=== PATIENT | female | born 1965 | race Caucasian/White ===

== ENCOUNTER → 2018-05-09 | Day surgery (SDC) | payer OTHER ==
--- NOTE | 2018-05-12 16:42 | PATH ---
Surgical Pathology Report Patient Name: JEAN CHRISTY [facility]. Rec. #: [id number] /Age/Gender: 1965 (Age: 52) / F Account: [id number] Location: [place] Pathology Taken: 05/09/2018 Received: 05/09/2018 Reported: 05/12/2018 Physicians: Vicente Nix M.D. Specimen(s) Received RIGHT BREAST CORE BIOPSY 9:00 [id number] Clinical History Ultrasound findings: Suspicious Final Diagnosis RIGHT BREAST, 9:00 6 CM FN, CORE BIOPSY: BENIGN BREAST TISSUE SHOWING FIBROCYSTIC CHANGES WITH MICROCYSTS, APOCRINE METAPLASIA, PERIDUCTAL MILD CHRONIC INFLAMMATION, STROMAL FIBROSIS, AND MICROCALCIFICATIONS. Electronically Signed Bib Tang M.D. Gross Description Received in formalin labeled "right breast biopsy 9:00, 6 cmfn," is a 1.8 x 1.3 x 0.2 cm aggregate of quezada-yellow, irregular to cylindrical portions of fibroadipose tissue. The formalin is filtered and the specimen is entirely submitted in one cassette. Time to formalin fixation: 2 minutes Total formalin fixation time: Approximately 6 hours. /05/09/201805/09/2018
== END | disposition home or self-care (01) ==
LOC: FRADUS-SUR 10:58
PROVIDERS: ATTEND Surgery Surgical Oncology
PROC: 0HBT3ZX Excision of Right Breast, Percutaneous Approach, Diagnostic (ICD-10-PCS; principal; 2018-05-09)
DX: N60.11 Diffuse cystic mastopathy of right breast (principal); N60.31 Fibrosclerosis of right breast; N64.89 Other specified disorders of breast; N63.10 Unspecified lump in the right breast, unspecified quadrant
CPT/HCPCS: 19083; 77065-TC; 87899; 88305-TC; A4648

== ENCOUNTER 2018-06-19 11:00 | Inpatient (IN) | payer OTHER ==
--- NOTE | 2018-06-12 09:11 | HP ---
Admitting History and Physical - Primary Care Physician PCP: Jose E Boland - Admission Chief Complaint: right breast cancer History of Present Illness: Patient is a 52 yo female noted to have suspicious masses at the right 11:00 position x 2 masses on mammo and US. Patient underwent a biopsy of these two lesions which revealed invasive carcinoma and atypia (2 clips). Patient also underwent a core bx of an additional right 9:00 lesion which was c/w benign findings. The MRI was c/w known cancer and without evidence of suspicious findings of the left. The patient has opted to have a bilateral mastectomy with right snbx, lympho, possible andx and reconstruction. History Source: Patient Limitations to Obtaining History: No Limitations - Past Medical History Gastrointestinal: Yes: Other (SBO 1973) - Past Surgical History Past Surgical History: Yes: (1989) Additional Past Surgical History: breast augmentation with silicone (2013) Home Medications - Allergies Allergies/Adverse Reactions: Allergies Allergy/AdvReac Type Severity Reaction Status Date / Time No Known Allergies Allergy Verified 06/12/18 09:15 - Home Medications Home Medications (free text): none Family Disease History - Family Disease History Family Disease History: CA: Grandparent (mat GF-gastric cancer, mat GM (uterine cancer) ) Review of Systems - Review of Systems Constitutional: reports: No Symptoms Cardiovascular: reports: No Symptoms Respiratory: reports: No Symptoms Physical Examination Constitutional: Yes: Well Nourished, Calm (Patient has vertical mastopexy well healed incisions from implant placement. Right breast with palpable density noted in the upper outer aspect at site of biopsies. No other suspicious masses were noted bilaterally. No suspicious adenopathy noted bilaterally.) Problem List - Problems (1) Breast cancer, right Code(s): C50.911 - MALIGNANT NEOPLASM OF UNSP SITE OF RIGHT FEMALE BREAST Qualifiers: Breast location: overlapping sites of breast Estrogen receptor status: positive Patient sex: female Qualified Code(s): C50.811 - Malignant neoplasm of overlapping sites of right female breast; Z17.0 - Estrogen receptor positive status [ER+] Assessment/Plan Plan: Bilateral mastectomy with right snbx, possible andx, lymphoscintogram and reconstruction
[2018-06-18 12:32] VITALS: BMI 19.7
[2018-06-19] MEDS ORDERED: MIDAZOLAM HCL 2 MG/2 ML SINGLE DOSE VIAL ONE (13:36)
[2018-06-19] MEDS ORDERED: GENTAMICIN SO4 80 MG/2 ML VIAL ONE (13:45)
[2018-06-19] MEDS ORDERED: ceFAZolin SODIUM 1 GM VIAL ONE ×3 (13:45→14:13)
[2018-06-19] MEDS ORDERED: ISOSULFAN BLUE 10 MG/ML VIAL SQ ONE (13:45)
[2018-06-19] MEDS ORDERED: PROPOFOL 20 ML ONE (13:58)
[2018-06-19] MEDS ORDERED: ROCURONIUM BROMIDE 50 MG/5 ML VIAL ONE ×2 (13:58→14:13)
[2018-06-19] MEDS ORDERED: fentaNYL CITRATE 250 MCG/5 ML VIAL ONE (13:59)
[2018-06-19] MEDS ORDERED: ONDANSETRON 4 MG/2 ML VIAL ONE ×2 (14:13→17:33)
[2018-06-19] MEDS ORDERED: KETOROLAC TROMETHAMINE 30 MG/1 ML VIAL ONE (14:13)
[2018-06-19] MEDS ORDERED: DEXAMETHASONE SOD PHOSPHATE 4 MG/1 ML VIAL ONE (14:13)
[2018-06-19] MEDS ORDERED: BUPIVACAINE LIPOSOME/PF (EXPAREL) 266 MG/20 ML VIAL ONE (14:41)
[2018-06-19] MEDS ORDERED: ONDANSETRON 4 MG/2 ML VIAL IVPUSH PRN (16:13)
[2018-06-19] MEDS ORDERED: ZOLPIDEM TARTRATE 5 MG TABLET PO PRN (16:13)
[2018-06-19] MEDS ORDERED: PROMETHAZINE HCL 25 MG/1 ML VIAL IVPUSH PRN ×2 (16:40→18:10)
[2018-06-19] MEDS ORDERED: GLYCOPYRROLATE 0.2 MG/1 ML VIAL ONE (16:42)
[2018-06-19] MEDS ORDERED: NEOSTIGMINE METHYLSULFATE 0.5 MG/ML - 10 ML MDV ONE (16:42)
[2018-06-19] MEDS ORDERED: oxyCODONE HCL 5 MG TABLET PO PRN (16:45)
[2018-06-19] MEDS: ONDANSETRON 4 MG/2 ML VIAL IVPUSH PRN (17:35)
--- NOTE | 2018-06-19 18:59 | OP ---
DATE OF OPERATION: 06/19/2018 PREOPERATIVE DIAGNOSIS: Right breast upper outer quadrant. PROCEDURE: Bilateral nipple-sparing mastectomy from inframammary approach with right axillary sentinel lymph node biopsy followed by axillary dissection with bilateral direct implant reconstruction with silicone implants and acellular dermal matrix. ANESTHESIA: General endotracheal anesthesia. SURGEON: Sammi Christian M.D. NAIL MAKING MACHINE SETTER: Nicki Finley Primary surgeon for the bilateral direct implant reconstruction is Sammi Currie M.D. COMPLICATIONS: There were no complications. DESCRIPTION OF PROCEDURE: Briefly, the patient is a 52-year-old G2, P1, premenopausal female of [place] descent. She has no family history of breast or ovarian cancer, but her paternal grandfather from stomach cancer in his 60s, and maternal grandmother from uterine cancer. The patient found a mass over the upper, outer aspect of the right breast and has a history of bilateral silicone augmentation implants with mastopexy in the past. Mammography on March 14, 2018, showed a couple suspicious densities around the right breast 11 o'clock region 5 cm from the nipple measuring 8 and 6 mm with a separate area of asymmetry in the right breast 9 o'clock region. Biopsies of the 11 o'clock area showed one of the densities to be an invasive mammary carcinoma which was ER/MT positive, HER2/julio negative, and a separate 11 o'clock density showed atypical lobular hyperplasia. She underwent biopsy of the 9 o'clock area just showing periductal inflammation. An MRI just showed the localized disease toward the upper outer aspect of the right breast in the separate 9 o'clock region which was biopsied and benign. The patient was advised on undergoing either a partial mastectomy with radiation versus mastectomy with sentinel lymph node biopsy. She chose to undergo a mastectomy on the right side, and also chose to have a prophylactic left side mastectomy, even though she was told of the lack of any overall survival benefit. She was seen by the plastic surgeon preoperatively and chose to have bilateral direct implant reconstruction with exchange of her current implant and the use of an acellular dermal matrix. She was brought in for the procedure on June 19, 2018. She first underwent lymph node scintigraphy with a periareolar injection of technetium 99 around the right breast, nipple areolar complex, and then was brought to the [place] holding area. In the holding area, site verification was made, and informed consent was obtained. She was marked preoperatively by the plastic surgeon. She was brought into the operating room and laid on the OR table in a supine position. Venodynes were placed on the lower extremities prior to induction. She received 2 g Ancef prior to incision. Inframammary incisions were marked bilaterally about 9 cm in length in the inframammary folds of both breasts. The right sentinel lymph node was first performed. No blue dye was injected, given the nipple sparing technique. An incision was made just below the hair bearing area of the right axilla, and dissection was undertaken, and a hot node which was blue was easily found in the level 1 region of the right axilla with a 10-second gamma count of 1,443. A second sentinel lymph node was found with 10 second gamma count of 4073. Both of these were sent to pathology for frozen section, and one of the nodes came back positive for metastatic cancer. Background counts after removal of these 2 nodes was 68. No other hot nodes were found. Hemostasis was achieved. At this point, the nipple-sparing mastectomy was performed through the inframammary incision. Skin edges were everted, and the breast was retracted inferiorly using [place] clamps. The skin flap was raised using the PEEK radiofrequency device superiorly to the level of the clavicle, medially to the level of the sternum, laterally to the level of the latissimus, and inferiorly below the level of the inframammary fold. The breast was taken off the pectoralis major muscles, from inferomedial to superolateral, completely removed intact. The implant was removed during the skin flap dissection to get better exposure. The breast was completely removed intact and oriented with a long lateral, short superior suture. Specimen radiographs showed removal of the clip in question. Hemostasis was achieved, and the wound was copiously irrigated with warm, sterile saline. Separate anterior margins were taken in the upper outer quadrant and lateral anterior margins with sutures marked in the biopsy cavity site, and these were sent separately as margins to pathology. At this point, the axillary dissection was performed by widening slightly the sentinel lymph node incision, and then performing a level 1, level 2 right lower axillary dissection. The pectoralis minor was used as the medial border of the resection, the latissimus as the lateral border, and the axillary vein as the superior border. [place] nodes were completely cleared out through this triangle and sent to pathology separately as right axillary lymph node dissection. The 2nd intercostal brachial nerve was identified and spared as well as the long thoracic and thoracodorsal nerve. Hemostasis was again achieved, and the wound was copiously irrigated with warm, sterile saline. At this point, the left prophylactic nipple sparing mastectomy was performed. Separate instruments, gloves were used, and the prophylactic mastectomy again was performed through a symmetrical left breast inframammary incision about 9 cm in length. Again, the skin edges were everted, and the breast was retracted inferiorly using Too clamps. The skin flap was raised using the PEEK radiofrequency device superiorly to the level of the clavicle, medially to the level of the sternum, laterally to the level of the latissimus, and inferiorly below the level of the inframammary fold. The breast was taken out off the pectoralis major muscles, from inferomedial to superolateral, completely removed intact. It was oriented with a long lateral, short superior suture. Both breasts were weighed to allow for appropriate cosmetic result. The left breast was sent in formalin to pathology as left breast prophylactic mastectomy. Skin flaps were trimmed for good cosmetic result. Retroareolar biopsies taken underneath both nipple areolar complexes, sent for frozen section, came back negative, so both nipples were spared. Hemostasis was achieved, and the wound was copiously irrigated. At this point, Dr. Currie performed the bilateral subpectoral direct implant reconstruction. She had the prior augmentation implants which were removed during the mastectomy. New silicone implants were placed, and acellular dermal matrix was used to allow for the direct implant reconstruction in the subpectoral position. All wounds will be closed separately by plastic surgery, and 2 Dawit drains will be placed around each implant, brought through separate stab incisions on the lateral skin flaps. Pain control will be controlled postoperatively by using an Exparel injection along both chest cortez for both pain control. All wounds will be closed by plastic surgery. After the mastectomy, estimated blood loss was about 100 mL, and she was hemodynamically stable. All sponge, needle counts were correct at this point in the case. She will be recovered in the post anesthesia care unit postoperatively and then admitted postoperatively for pain management and wound management. We did use the SPY skin perfusion device during the case, which showed good skin perfusion bilaterally though there was some delayed perfusion in the nipple secondary to the prior reduction mastopexy, but there was perfusion allowing us to spare both nipples. SAMMI CHRISTIAN M.D. [id number]
--- NOTE | 2018-06-19 21:06 | SURG ---
Surgery Sales Representative Gas Service Note Sales Representative Gas Service: Hans Alvarenga PA-C Date of Service: 06/19/18 Diagnosis: Right breast cancer Procedure: Left breast mastectomy (right breast mastectomy performed by another surgeon). Bilateral breast reconstruction with alloderm skin grafts and implants I was present for the entirety of the operative procedure. For further detail, please refer to operative report. Visit type - Case Type Case Type: Scheduled - New patient This patient is new to me today: Yes Date on this admission: 06/19/18
[2018-06-19] MEDS: CEFAZOLIN 1 GM/D5W 1 GM/50 ML BAG IVPB SCH (21:20)
[2018-06-19] MEDS: oxyCODONE HCL 5 MG TABLET PO PRN (21:28)
[2018-06-19] MEDS: DEXTROSE 5%-0.45% SALINE 1,000 ML IV SCH (22:12)
[2018-06-20] MEDS: CEFAZOLIN 1 GM/D5W 1 GM/50 ML BAG IVPB SCH ×4 (03:00→20:42)
[2018-06-20] MEDS: oxyCODONE HCL 5 MG TABLET PO PRN ×3 (05:11→22:08)
[2018-06-20 08:02] LABS: HEMATOCRIT 30.8 % (32.4-45.2); HEMOGLOBIN 10.1 GM/dl (10.7-15.3); MCH 29.3 pg (25.7-33.7); MCHC 32.7 g/dl (32.0-36.0); MEAN CELL VOLUME 89.7 fl (80-96); MEAN PLT VOLUME 8.1 fl (7.5-11.1); PLATELET COUNT 241 K/MM3 (134-434); RBC 3.44 M/mm3 (3.60-5.2); RDW 12.2 % (11.6-15.6); WHITE BLOOD COUNT 9.4 K/mm3 (4.0-10.8)
[2018-06-20] MEDS: HEPARIN NA (PORCINE) 5,000 UNITS/ML 1ML VIAL SQ SCH ×2 (09:58→21:39)
--- NOTE | 2018-06-20 10:00 | PN ---
Progress Note (short form) - Note Progress Note: Post op day#1.S/P Bilateral nipple sparing mastectomy with reconstruction under GA uneventful.Patient stable.No any anesthesia related problem.Patient dc from the anesthesia care.
[2018-06-20] MEDS: ONDANSETRON 4 MG/2 ML VIAL IVPUSH PRN (10:02)
--- NOTE | 2018-06-20 10:55 | PN ---
Progress Note, Physician Chief Complaint: S/P bilateral mastectomy, right snbx, andx with reconstruction POD#1 History of Present Illness: Patient was seen this am and is comfortable with good pain control. She is tolerating po well. - Current Medication List Current Medications: Active Medications Acetaminophen (Tylenol -) 650 mg PO Q4H PRN PRN Reason: FEVER Heparin Sodium (Porcine) (Heparin -) 5,000 unit SQ BID DORY Last Admin: 06/20/18 09:58 Dose: 5,000 unit Cefazolin Sodium (Ancef 1 Gm Premixed Ivpb -) 1 gm in 50 mls @ 100 mls/hr IVPB Q6H-IV DORY Stop: 06/26/18 20:59 Last Admin: 06/20/18 09:58 Dose: 100 mls/hr Dextrose/Sodium Chloride (D5-1/2ns -) 1,000 mls @ 100 mls/hr IV ASDIR DORY Last Admin: 06/19/18 22:12 Dose: 100 mls/hr Oxycodone HCl (Roxicodone -) 10 mg PO Q4H PRN PRN Reason: PAIN LEVEL 6-10 Stop: 06/20/18 18:09 Last Admin: 06/20/18 05:11 Dose: 10 mg Promethazine HCl (Phenergan Injection -) 12.5 mg IVPUSH Q6H PRN PRN Reason: NAUSEA-FOR RESCUE AFTER 15 MIN Zolpidem Tartrate (Ambien -) 5 mg PO HS PRN PRN Reason: Insomnia - Objective Vital Signs: Vital Signs Temperature 98.0 F 06/20/18 09:57 Pulse Rate 70 06/20/18 09:57 Respiratory Rate 18 06/20/18 09:57 Blood Pressure 105/63 06/20/18 09:57 O2 Sat by Pulse Oximetry (%) 100 06/19/18 18:35 Constitutional: Yes: Well Nourished, Calm Breast(s): Yes: Other (Bilateral flaps are warm. The right nipple with epidermolysis noted. Right ecchymosis noted. Left nipple areola complex and flap with good color. Bilateral JPs with serosanginous discharge noted.) Labs: CBC, BMP 06/20/18 07:06 Problem List - Problems (1) Breast cancer, right Code(s): C50.911 - MALIGNANT NEOPLASM OF UNSP SITE OF RIGHT FEMALE BREAST Qualifiers: Breast location: overlapping sites of breast Estrogen receptor status: positive Patient sex: female Qualified Code(s): C50.811 - Malignant neoplasm of overlapping sites of right female breast; Z17.0 - Estrogen receptor positive status [ER+] Assessment/Plan POD #1 S/P bilateral mastectomy with right andx and reconstrucion POD#1 Plan OOB today with assistance D/C IVF in pm Continue pain meds and axbx as directed. Plan for discharge tomorrow or Saturday
--- NOTE | 2018-06-20 14:29 | OP ---
DATE OF OPERATION: 06/19/2018 PREOPERATIVE DIAGNOSES: 1. 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 2. Personal history of genetic carcinoma. POSTOPERATIVE DIAGNOSES: 1. 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 2. Personal history of genetic carcinoma. PROCEDURE: 1. Right immediate breast reconstruction utilizing immediate insertion of silicone breast implant and Cortiva 1-mm tailored allograft dermis of large size. 2. Left immediate breast reconstruction utilizing immediate insertion of silicone breast implant and Cortiva 1-mm tailored allograft dermis of large size. 3. Intravenous injection of indocyanine green dye and intraoperative diagnostic evaluation of non-coronary intraoperative fluorescein vascular angiography x 2. SURGEON: Dr. Denise Currie MATH COACH: IRENE Sheridan ANESTHESIA: General. ANESTHESIOLOGIST: OPERATIVE PROCEDURE IN DETAIL: The patient was taken to the operating room. After induction of general anesthesia in the supine position, both arms were extended and padded. Venodyne boots were placed. The entire chest wall was painted with ChloraPrep solution over its entire extent, and sterile drapes were placed in the usual fashion. The markings, which had been made in the standing position preoperatively, were reoutlined with the patient's knowledge. Time-out procedure was performed. Attention was turned by Dr. Sammi Boland to the mastectomies. Bilateral inframammary incisions were made and Dr. Sammi Boland performed mastectomies. This will be dictated under separate cover. Upon completion of the mastectomies, the wounds were copiously irrigated and attention was turned to the right breast. A subpectoral dissection was begun on the right breast, superiorly from the second rib, medially to the sternal fibers, and down to the inframammary fold, elevating the pectoralis major muscle from its insertion. At this point, she had Cortiva 1-mm tailored allograft dermis of large size placed on each breast. This was carried along the lateral mammary fold and down the side of the breast reconstruction. At this point, a Natrelle Inspira Soft Touch breast implant style SSF 560 volume placed into each breast. The left breast tissue removed was 172 g, and the right breast approximately 213 g. This implant was placed and then sutured with 3-0 Vicryl suture continued along the inframammary fold, completely covering the implant itself. The patient had implants, which weighed 280 g of tissue for a total volume of approximately 560 mL from the breast. The exact same procedure was carried out symmetrically on the opposite breast, also placing a [facility] Soft Touch breast implant style SSF 560 volume implant in the same subpectoral pocket. Good symmetry was seen in the sitting position. After the implants were in place, the patient was injected with 10 mL of Isocyanide green dye, and the patient had Spy imaging system was brought into the field. The patient had Spy intraoperative angiogram x2, which showed good blood flow to the nipple areolar complexes. The skin flowed to the right and left breasts and the nipple areolar complex, and the entire skin flaps were evaluated and seen to be viable with good blood flow. Two Dawit drains were brought out through separate stab wounds laterally. The Smart Infuser pump catheter was inserted medially and into the subpectoral position. Both wounds were closed symmetrically using 3-0 PDS suture on the deep tissue, 3-0 in a deep dermal fashion, and 4-0 in a subcuticular fashion. Both wounds were dressed sterilely with Mastisol and Steri-Strips with a surgical bra and a compression strap. The patient tolerated the procedure well. She was awakened, extubated and transferred to the recovery room in satisfactory condition. The hotel assistant general manager was present during the entire portion of the operation and closure. SAMMI CURRIE M.D. [id number]
[2018-06-20] MEDS: DEXTROSE 5%-0.45% SALINE 1,000 ML IV SCH (18:40)
[2018-06-20] MEDS: ACETAMINOPHEN 325 MG TABLET (FP) PO PRN (20:43)
[2018-06-21] MEDS: CEFAZOLIN 1 GM/D5W 1 GM/50 ML BAG IVPB SCH ×4 (03:21→21:16)
[2018-06-21] MEDS: oxyCODONE HCL 5 MG TABLET PO PRN ×3 (04:28→19:04)
[2018-06-21] MEDS: ACETAMINOPHEN 325 MG TABLET (FP) PO PRN (09:56)
[2018-06-21] MEDS: HEPARIN NA (PORCINE) 5,000 UNITS/ML 1ML VIAL SQ SCH ×2 (09:56→21:16)
--- NOTE | 2018-06-21 10:33 | PN ---
Progress Note, Physician Chief Complaint: right breast cancer s/p bilateral nipple sparing mastectomies with right axillary sentinel lymph node biopsy followed by axillary lymph node dissection and bilateral direct to implant reconstruction with acellular dermal matrix. - Current Medication List Current Medications: Active Medications Acetaminophen (Tylenol -) 650 mg PO Q4H PRN PRN Reason: FEVER Last Admin: 06/21/18 09:56 Dose: 650 mg Heparin Sodium (Porcine) (Heparin -) 5,000 unit SQ BID DORY Last Admin: 06/21/18 09:56 Dose: 5,000 unit Cefazolin Sodium (Ancef 1 Gm Premixed Ivpb -) 1 gm in 50 mls @ 100 mls/hr IVPB Q6H-IV DORY Stop: 06/26/18 20:59 Last Admin: 06/21/18 09:56 Dose: 100 mls/hr Dextrose/Sodium Chloride (D5-1/2ns -) 1,000 mls @ 100 mls/hr IV ASDIR DORY Last Admin: 06/20/18 18:40 Dose: Not Given Oxycodone HCl (Roxicodone -) 10 mg PO Q4H PRN PRN Reason: PAIN LEVEL 6-10 Last Admin: 06/21/18 09:57 Dose: 10 mg Promethazine HCl (Phenergan Injection -) 12.5 mg IVPUSH Q6H PRN PRN Reason: NAUSEA-FOR RESCUE AFTER 15 MIN Zolpidem Tartrate (Ambien -) 5 mg PO HS PRN PRN Reason: Insomnia - Objective Vital Signs: Vital Signs Temperature 98.6 F 06/21/18 08:57 Pulse Rate 87 06/21/18 08:57 Respiratory Rate 18 06/21/18 08:57 Blood Pressure 91/49 L 06/21/18 08:57 O2 Sat by Pulse Oximetry (%) 96 06/21/18 08:57 Constitutional: Yes: Well Nourished, No Distress Eyes: Yes: WNL HENT: Yes: Atraumatic, Normocephalic Neck: Yes: WNL Cardiovascular: Yes: Regular Rate and Rhythm Respiratory: Yes: Regular, CTA Bilaterally Gastrointestinal: Yes: Normal Bowel Sounds, Soft ...Rectal Exam: Yes: Deferred Genitourinary: Yes: WNL Breast(s): Yes: Other (Mastectomy wounds clean, dry, and intact. Drains functioning well. Skin flaps warm and viable.) Musculoskeletal: Yes: WNL Extremities: Yes: WNL Wound/Incision: Yes: Clean/Dry, Well Approximated Neurological: Yes: Alert, Oriented ...Motor Strength: WNL Psychiatric: Yes: WNL Labs: CBC, BMP 06/20/18 07:06 Problem List - Problems (1) Breast cancer, right Assessment/Plan: The patient is POD#2 s/p bilateral nipple sparing mastectomies with right axillary sentinel lymph node biopsy followed by axillary dissection and bilateral direct to implant reconstruction for a right upper outer quadrant breast cancer. Her wounds are healing nicely with warm viable skin flaps. Drains are functioning well. She is still complaining of pain but should be stable for discharge by tomorrow AM. Patient instructed on drain management. No heavy lifting or exercise. NO bath/shower until drains removed. Keep compressive bra in place night/day. Percocet for pain and cefadroxil antibiotics. Follow up with Drs. Boland and Kush in 1 week. Code(s): C50.911 - MALIGNANT NEOPLASM OF UNSP SITE OF RIGHT FEMALE BREAST Qualifiers: Breast location: overlapping sites of breast Estrogen receptor status: positive Patient sex: female Qualified Code(s): C50.811 - Malignant neoplasm of overlapping sites of right female breast; Z17.0 - Estrogen receptor positive status [ER+]
--- NOTE | 2018-06-21 10:39 | DS ---
Physical Examination Vital Signs: Vital Signs Temperature 98.6 F 06/21/18 08:57 Pulse Rate 87 06/21/18 08:57 Respiratory Rate 18 06/21/18 08:57 Blood Pressure 91/49 L 06/21/18 08:57 O2 Sat by Pulse Oximetry (%) 96 06/21/18 08:57 Constitutional: Yes: Well Nourished, No Distress, Calm Eyes: Yes: WNL HENT: Yes: Atraumatic, Normocephalic Neck: Yes: WNL Cardiovascular: Yes: Regular Rate and Rhythm Respiratory: Yes: Regular, CTA Bilaterally Gastrointestinal: Yes: Normal Bowel Sounds, Soft ...Rectal Exam: Yes: Deferred Renal/: Yes: WNL Breast(s): Yes: Other (Mastectomy wounds cleanl, dry, and intact. Drains functioning well. Skin flaps warm and viable.) Musculoskeletal: Yes: WNL Extremities: Yes: WNL Wound/Incision: Yes: Clean/Dry, Well Approximated Neurological: Yes: Alert, Oriented ...Motor Strength: WNL Psychiatric: Yes: WNL Labs: CBC, BMP 06/20/18 07:06 Discharge Summary Reason For Visit: LEFT BREAST CA Right breast cancer upper outer quadrant Procedures: Principal: Bilateral nipple sparing mastectomies with right axillary sentinel lymph node biopsy followed by axillary lymph node dissection and bilateral direct to implant reconstruction with acellular dermal matrix Hospital Course: The patient was admitted postoperatively for pain and wound management and had good pain control postoperatively. She was doing well and had good pain control and her wounds were clean and dry with viable skin flaps and she was stable for discharge by POD#3. She was taught drain management and is to follow up with Drs. Currie and Kya in 1 week. Condition: Good - Instructions Diet, Activity, Other Instructions: Regular diet. No heavy lifting or exercise. No bath/shower until drains removed. Keep compressive bra on day/night. Record drain outputs daily. Follow up with Drs. Currie and Kya in 1 week. Referrals: Jose E Boland MD [Staff Physician] - Will Currie MD [Staff Physician] - Disposition: HOME - Home Medications Comprehensive Discharge Medication List: Ambulatory Orders Acetaminophen [Tylenol] 650 mg PO ASDIR PRN 06/18/18 Ibuprofen 400 mg PO ASDIR PRN 06/18/18
[2018-06-21] MEDS: DEXTROSE 5%-0.45% SALINE 1,000 ML IV SCH (19:04)
[2018-06-22] MEDS: oxyCODONE HCL 5 MG TABLET PO PRN ×2 (00:01→09:32)
[2018-06-22] MEDS: CEFAZOLIN 1 GM/D5W 1 GM/50 ML BAG IVPB SCH ×2 (03:17→08:43)
[2018-06-22 07:17] VITALS: TEMP 98.3
[2018-06-22 10:37] VITALS: BP 105/55; PULSE 63
--- NOTE | 2018-06-24 15:41 | PATH ---
Surgical Pathology Report Patient Name: JEAN CHRISTY [facility]. Rec. #: [id number] /Age/Gender: 1965 (Age: 52) / F Account: [id number] Location: [facility] Taken: 06/19/2018 Received: 06/19/2018 Reported: 06/24/2018 Physicians: Jose E Boland M.D. Specimen(s) Received A: RIGHT BREAST SENTINEL LYMPH NODE #1 (FS) B: RIGHT BREAST SENTINEL LYMPH NODE #2 (FS) C: LEFT RETROAREOLAR BIOPSY (FS) D: RIGHT RETROAREOLAR BIOPSY (FS) E: RIGHT BREAST, MASTECTOMY F: LEFT BREAST, MASTECTOMY G: RIGHT BREAST ANTERIOR LATERAL MARGIN H: RIGHT BREAST UPPER OUTER QUADRANT I: RIGHT AXILLARY LYMPH NODE DISSECTION J: RIGHT AND LEFT BREAST IMPLANTS Clinical History R UOQ cancer Intraoperative Consult Diagnosis A. Right breast sentinel node #1, frozen section: One negative lymph node (0/1). B. Right breast sentinel node #2, frozen section: Positive for metastatic carcinoma (1/1). C. Left retroareolar biopsy, frozen section: Negative for malignancy. D. Right retroareolar biopsy, frozen section: Negative for malignancy. Vicente Taylor, 06/19/18. Final Diagnosis A. LYMPH NODE, RIGHT BREAST SENTINEL #1, EXCISION (FS): ONE. LYMPH NODE, NEGATIVE FOR METASTATIC CARCINOMA (0/1). B. LYMPH NODE, RIGHT BREAST, SENTINEL. #2, EXCISION (FS): METASTATIC CARCINOMA, INVOLVING ONE OF ONE LYMPH NODE ON H&E STAINED SECTIONS AND CYTOKERATIN (AE1/3) IMMUNOSTAIN (1/1). THE LARGEST CONTIGUOUS FOCUS OF METASTATIC CARCINOMA MEASURES 8 MM IN GREATEST DIMENSION (MACROMETASTASIS). NO EXTRANODAL EXTENSION IS IDENTIFIED. C. RETROAREOLA, LEFT, BIOPSY (FS): BENIGN BREAST TISSUE; NEGATIVE FOR MALIGNANCY. D. RETROAREOLAR, RIGHT, BIOPSY (FS): BENIGN BREAST TISSUE; NEGATIVE FOR MALIGNANCY. E. BREAST, RIGHT, NIPPLE-SPARING MASTECTOMY: TWO FOCI OF INVASIVE LOBULAR CARCINOMA, CLASSICAL TYPE (TUBULE SCORE: 3/3, NUCLEAR GRADE: 2/3, MITOTIC SCORE: 2/3, TOTAL SCORE: 7/9; CALOS GRADE 2), PRESENT IN THE UPPER OUTER QUADRANT (UOQ), MEASURING 1.0 CM AND 0.5 CM IN GREATEST DIMENSION, MICROSCOPICALLY. THE LARGER FOCUS OF INVASIVE CARCINOMA SHOWS ADJACENT PRIOR BIOPSY SITE, WHILE THE SMALLER FOCUS IS PRESENT AT A DISTANCE OF 7 MM FROM THE LARGER FOCUS, WITH NO ASSOCIATED PRIOR BIOPSY SITE. AN ADDITIONAL FOCUS OF PRIOR BIOPSY SITE CHANGES WITH ASSOCIATED BENIGN BREAST PARENCHYMA IS PRESENT IN THE UOQ. (SEE NOTE). SURGICAL MARGINS ARE UNINVOLVED BY INVASIVE CARCINOMA; CARCINOMA IS AT 5 MM FROM THE CLOSEST ANTERIOR AND DEEP MARGINS. SEE SPECIMENS G & H FOR FINAL ANTERIOR MARGIN. NO LYMPHOVASCULAR INVASION IS IDENTIFIED. REMAINING BREAST TISSUE SHOWS FIBROCYSTIC CHANGES INCLUDING CYSTIC APOCRINE METAPLASIA WITH STROMAL FIBROSIS, SECRETORY CHANGE, COLUMNAR CELL CHANGE AND ASSOCIATED CALCIFICATIONS. PATHOLOGIC STAGE (pTNM): pT1b(m) pN1a. SEE ALSO INVASIVE CARCINOMA CASE SUMMARY BELOW. Note: Prior right breast biopsy ([id number]) with benign findings and prior slide review case ([id number], outside institution ) showing invasive lobular carcinoma are noted. The tumor cells are negative for Ecadherin immunostain (performed at. [facility] on block E1), which supports lobular phenotype. F. BREAST, LEFT, NIPPLE-SPARING MASTECTOMY: BENIGN BREAST TISSUE SHOWING FIBROCYSTIC CHANGES INCLUDING MICROCYSTS, USUAL DUCTAL HYPERPLASIA (UDH), STROMAL FIBROSIS, COLUMNAR CELL CHANGE AND ASSOCIATED CALCIFICATIONS. G. BREAST, RIGHT, ANTERIOR/LATERAL MARGIN, EXCISION: BENIGN BREAST TISSUE. H. BREAST, RIGHT, UPPER OUTER QUADRANT, EXCISION: ONE BENIGN LYMPH NODE (0/1). BENIGN FIBROADIPOSE TISSUE. I. LYMPH NODES, RIGHT AXILLARY, DISSECTION: SEVEN LYMPH NODES, NEGATIVE FOR METASTATIC CARCINOMA (0/7). J. IMPLANTS, LEFT AND RIGHT BREAST, REMOVAL: IMPLANTS, DESCRIBED (GROSS EXAMINATION ONLY). Comments Breast Invasive Carcinoma: Surgical Pathology Case Summary (Based on AJCC TNM 8 th edition) Procedure _X_ Total mastectomy (including nipple-sparing and skin-sparing mastectomy) Specimen Laterality _X_ Right Tumor Size _X_ Greatest dimension of largest invasive focus >1 mm (millimeters): 10 mm Histologic Type _X_ Invasive lobular carcinoma Histologic Grade (Benld Histologic Score) Glandular (Acinar)/Tubular Differentiation _X_ Score 3 (<10% of tumor area forming glandular/tubular structures) Nuclear Pleomorphism _X_ Score 2 Mitotic Rate _X_ Score 2 Overall Grade _X_ Grade 2 (scores of 6 or 7) Tumor Focality _X_ Multiple foci of invasive carcinoma Number of foci: 2 Sizes of individual foci: 10 mm, 5 mm Ductal Carcinoma In Situ (DCIS) _X_ No DCIS in specimen Margins Invasive Carcinoma Margins _X_ Uninvolved by invasive carcinoma Distance from closest margin (millimeters): 5 mm Closest margin: anterior and deep (final anterior margins G&H are negative for carcinoma). DCIS Margins _X_ No DCIS in specimen Regional Lymph Nodes _X_ Involved by tumor cells Number of Lymph Nodes with Macrometastases (>2 mm): 1 Number of Lymph Nodes with Micrometastases (>0.2 mm to 2 mm and/or >200 cells): 0 Number of Lymph Nodes with Isolated Tumor Cells (=0.2 mm and =200 cells): 0 Size of Largest Metastatic Deposit (millimeters): 8 mm 1/10 axillary lymph nodes positive for metastatic carcinoma, based on specimens A,B,H&I. Extranodal extension: _X_ Not identified Treatment Effect _X_ No known presurgical therapy Lymphovascular Invasion _X_ Not identified Pathologic Stage Classification (pTNM, AJCC 8th Edition) Primary Tumor (Invasive Carcinoma) (pT) _X_ pT1b (m): Tumor > 5 mm but =10 mm in greatest dimension Category (pN) _X_ pN1a: Metastases in 1 to 3 axillary lymph nodes, at least 1 metastasis larger than 2.0 mm Biomarker Studies Results of ER and MI studies performed on this specimen (block E1) at [facility] are as follows: ER (clone [id number] mouse monoclonal antibody by [employer]): > 90 % nuclear staining with strong intensity (positive). MI (clone16 mouse monoclonal antibody by [employer] : ~50 % nuclear staining with strong to moderate intensity (positive). Results of Her2 (IHC) & Ki-67 will be reported separately in an addendum. Positive and negative controls (internal if applicable) show appropriate results. Formalin fixation and cold ischemic times are within current ASCO/CAP recommendations for ER, MI and Her2 testing. Electronically Signed Rosangela Chance M.D. Addendum Reported: 06/26/2018 Addendum Diagnosis Results of Her2 (IHC) & Ki-67 studies performed on block E1 at [place], [place] ([id number]) are as follows: Her2 IHC (EP3 from [employer], formerly known as [id number], using [employer] Polymer Refine detection kit): 0 (Negative). Ki-67: 15-20% (Intermediate proliferative index). Positive and negative controls (internal if applicable) show appropriate results. Rosangela Chance M.D. Gross Description A. Received fresh for frozen section evaluation, labeled "right breast, sentinel node #1" is a 1.8 x 0.7 x 0.4 cm lymph node with attached adipose tissue. The lymph node is bisected and frozen section is performed on the lymph node. The frozen section residue is entirely submitted in one cassette labeled FSA. B. Received fresh for frozen section evaluation, labeled "right breast, sentinel node #2" is a 2 x 0.8 x 0.4 cm lymph node with attached adipose tissue. The lymph node is bisected and frozen section is performed on the lymph node. The frozen section residue is entirely submitted in one cassette labeled FSB. C. Received fresh for frozen section evaluation, labeled "left retroareolar biopsy" is a 1.2 x 0.6 x 0.2 cm portion of red and yellow [place] soft tissue. Frozen section is performed on the specimen. The frozen section residue is entirely submitted in one cassette labeled FSC. D. Received fresh for frozen section evaluation, labeled "right retroareolar biopsy" is a 1.3 x 0.5 x 0.2 cm portion of red and yellow [place] soft tissue. Frozen section is performed on the specimen. The frozen section residue is entirely submitted in one cassette labeled FSD. E. Received in formalin, labeled "right breast mastectomy," is a 247 gram, 15.5 x 12.5 x 2.5 cm. right mastectomy specimen with a short suture marking the superior aspect and a long suture marking the lateral aspect of the specimen, per the surgeon. There is no skin or nipple present. The deep margin is inked black and the anterior soft tissue margin is inked blue. The specimen is serially sectioned from lateral to medial. Sectioning reveals a 1.0 x 1.0 x 0.5 cm ill-defined mass in the upper outer quadrant (UOQ). The mass is 0.7 cm from the anterior soft tissue margin and 0.8 cm from the deep margin. There is an additional biopsy site containing a san metallic clip also in the UOQ, 2 cm inferior to the mass. The remaining breast parenchyma displays foci of white fibrous tissue. [employer] sections are submitted in 16 cassettes as follows: 1- mass with anterior soft tissue margin; 2- mass with anterior and deep margin; 3- mass with anterior margin; [id number]-[id number] UOQ biopsy site; 8-10-lower outer quadrant; 11-12-upper inner quadrant; 13-15-lower inner quadrant; 16-deep margin. F. Received in formalin, labeled "left breast mastectomy," is a 183 gram, 16.5 x 12.5 x 2.0 cm. left mastectomy specimen with a short suture marking the superior aspect and a long suture marking the lateral aspect of the specimen, per the surgeon. There is no skin or nipple present. The deep margin is inked black and the anterior soft tissue margin is inked blue. The specimen is serially sectioned from medial to lateral. Sectioning reveals multifocal dense white fibrous tissue. [employer] sections are submitted in 11 cassettes as follows: 1-3-upper outer quadrant; 4-5-lower outer quadrant; 6-7-upper inner quadrant; 8-9-lower inner quadrant; 10-anterior soft tissue margin; 11-deep margin. Time to formalin fixation: 35 minutes Total formalin fixation time: Approximately 26 hours. G. Received in formalin labeled "right breast anterior lateral margin," is an 8.0 x 3.0 x 1.0 cm portion of fibroadipose tissue with a suture marking the biopsy cavity side, per the surgeon. The new margin is inked blue and the specimen is serially sectioned. The specimen is entirely and sequentially submitted in 8 cassettes. H. Received in formalin labeled "right breast upper outer quadrant anterior margin," is a 4.0 x 2.0 x 1.0 cm portion of fibroadipose tissue with a suture marking the biopsy cavity side, per the surgeon. The new margin is inked blue and the specimen is serially sectioned. The specimen is entirely submitted in 4 cassettes. I. Received in formalin labeled "right axillary node dissection," is an 8.0 x 6.0 x 1.5 cm aggregate of yellow, lobulated adipose tissue. Sectioning reveals multiple lymph nodes ranging from 0.4-1.4 cm in greatest dimension. [employer] sections are submitted in 10 cassettes as follows: 1-3-one bisected lymph node each; 4-6-one whole lymph node each; 6-88-whaamcohlu sales representative door to door fat. J. Received fresh labeled "left breast implant, right breast implant," are 2 clear, rubbery, intact breast implants averaging 11.5 cm in diameter and 4 cm in depth. No soft tissue is present. No sections are submitted, gross only. AE/06/19/2018 ebram/06/19/2018
== END 2018-06-22 10:10 | disposition home or self-care (01) | DRG 362 ==
LOC: FM/S 11:58
PROVIDERS: ADMIT Surgery Surgical Oncology; ATTEND Surgery Surgical Oncology
PROC: 0HRV075 Replacement of Bilateral Breast using Latissimus Dorsi Myocutaneous Flap, Open Approach (ICD-10-PCS; 2018-06-19)
PROC: 0HTV0ZZ Resection of Bilateral Breast, Open Approach (ICD-10-PCS; principal; 2018-06-19 12:00)
PROC: 07B50ZX Excision of Right Axillary Lymphatic, Open Approach, Diagnostic (ICD-10-PCS; 2018-06-19 12:00)
PROC: 0HUV0JZ Supplement Bilateral Breast with Synthetic Substitute, Open Approach (ICD-10-PCS; 2018-06-19 12:00)
DX: C50.411 Malignant neoplasm of upper-outer quadrant of right female breast (principal); M95.4 Acquired deformity of chest and rib; Z17.0 Estrogen receptor positive status [ER+]
CPT/HCPCS: 36415; 78195-TC; 84703; 85027; 88300-TC; 88307-TC; 88331-TC; 94760; A9541; J1644